=== PATIENT | male | born 1975 | race Caucasian/White ===

== ENCOUNTER 2019-10-21 13:27 | Outpatient (REF) | payer BC, SELFPAY ==
[2019-10-22 11:31] LABS: COVID-19 RT-PCR UVMMC Result Negative (Negative)
== END 2019-10-21 13:47 ==
LOC: NCHCN 13:27
PROVIDERS: PCP Family Medicine; Visit Provider Physician Assistant
DX: J06.9 Acute upper respiratory infection, unspecified (principal)
CPT/HCPCS: U0003

== ENCOUNTER 2022-03-15 17:55 | Outpatient (REF) | payer BC, SELFPAY ==
[2022-03-15 19:18] LABS: HCT 44.2 % (40.0-50.0); HGB 15.5 g/dL (13.5-17.5); MCH 31.4 pg (27.0-33.0); MCHC 35.1 % (32.0-36.0); MCV 90 fL (80-95); MPV 10.5 fL (8.0-11.0); Platelet Count 242 10^3/uL (130-400); RBC 4.93 10^6/uL (4.36-5.78); RDW 11.9 % (11.8-14.1); RDW-SD 38.8 fL; WBC 6.58 10^3/uL (4.4-10.8)
[2022-03-15 19:28] LABS: Anion Gap 6.8 mmol/L (3-11); BUN 17 mg/dL (7-18); CO2 30.2 mmol/L (21.0-32.0); CREATININE 0.9 mg/dL (0.70-1.30); Calcium 9.3 mg/dL (8.5-10.1); Calculated LDL 101 mg/dL (<100); Chloride 102 mmol/L (98-107); Cholesterol 200 mg/dL (<200); Estimated GFR 105.35 (mL/min/1.73m2); Glucose 95 mg/dL (74-106); HDL Cholesterol 61 mg/dL (40-60); Sodium 139 mmol/L (136-145); Triglyceride 190 mg/dL (<150)
[2022-03-15 21:07] LABS: Hemoglobin A1C 4.9 % (<5.7)
[2022-03-17 09:44] LABS: Hepatitis C Ab w Rflx HCV PCR Negative (Negative)
== END 2022-03-15 17:56 | disposition home or self-care (01) ==
LOC: NCHCN 17:55
PROVIDERS: PCP Family Medicine; Visit Provider Family Medicine
DX: R55 Syncope and collapse (principal); Z00.00 Encounter for general adult medical examination without abnormal findings; Z11.59 Encounter for screening for other viral diseases
CPT/HCPCS: 80048; 80061; 85027; 86803; 83036

== ENCOUNTER 2023-01-13 07:46 | Day surgery (SDC) | payer BC, SELFPAY ==
--- NOTE | 2023-01-12 22:34 | W.COLOREPORT ---
Date of service: 01/13/23 Time of Service: 09:30 Colonoscopy Report Date of procedure: 01/13/23 Pre-op diagnosis general: colorectal cancer screening Post-op diagnosis procedure note: same (Normal) Surgeon: Che Navarro Anesthesia Type: General:No Airway Estimated blood loss (mL): 0 Pathology: none sent Complications: None Disposition: same day Prep: Miralax/Dulcolax Retraction Time: 12 Procedure Description: After informed consent was obtained the patient was taken to the procedure room and placed in a left decubitous position. Monitors were applied and a time out was done. The patients name, date of , procedure, allergies to medications and metal in their body was reviewed. The patient was then sedated. Once sedated and comfortable a rectal exam was done. External exam was normal. Internal exam revealed a normal sphincter tone and no palpable masses. The prostate normal. The scope was then introduced and retrofelexed. No internal hemorrhoids were identified. The scope was then advanced to the cecum without difficulty. The TI and appendiceal orifice were identified. The prep was BBPS 3 in all segments for total of 9. The scope was then slowly retracted over 12 minutes back into the rectum. There are no polyps, AVMs, or diverticula visualized today. The mucosa is pink and healthy with a normal vascular pattern.. The scope was removed and the patient was woken up and taken back to Same day surgery in stable condition. The patient tolerated the procedure well and there were no immediate complications. Follow up: The patient should follow up in 10 years unless they develop changes in bowel habits or other new gastrointestinal complaints.
--- NOTE | 2023-01-12 22:35 | PDOC.DSDIS_ITS ---
Date of service: 01/13/23 Time of Service: 09:52 Discharge Plan Disposition Patient Disposition: Home Condition: Good Discharge Details Reason For Visit: Colon cancer screening Attending Provider: Che Navarro Primary Care Provider: Beto Castillo Home Meds and New Rx's Prescriptions: Continued ibuprofen 200 mg tablet 200 mg PO Q6H PRN Discontinued bisacodyl [Dulcolax (bisacodyl)] 5 mg tablet,delayed release (DR/EC) 5 mg PO ONCE Qty: 4 0RF Rx Instructions: Colonoscopy Bowel Prep- Per Instructions polyethylene glycol 3350 17 gram/dose powder 238 g PO ONCE Qty: 238 0RF Rx Instructions: Colonoscopy Bowel Prep- Per Instructions Discharge Instructions Additional Instructions: DSU Colonoscopy Post- Op Instructions Instructions for Everyone who is given Anesthesia: For your safety, please do the following for the next twenty-four (24) hours: *Do Not operate a motor vehicle (car, truck, motorcycle, etc.) *Do Not drink alcoholic beverages or use any recreational drugs for the first 24 hours or while taking pain medications. The medications in your body may have a reaction that can be dangerous. *Do Not make any important decisions or sign any important papers. Findings: Normal Follow up: Repeat in 10 yrs time 1. No lifting over 20 pounds or strenuous activity for the first 24 hours after your procedure. After 24 hours there are no restrictions on your activity but you may feel fatigued for a few days. 2. After you arrive home you may have a light meal and return to your normal diet as you can tolerate it without feeling sick to your stomach. 3. You may have a bloated, gaseous feeling in your belly (abdomen) after a colonoscopy. Passing gas and belching will help. Walking or lying down on your left side with your knees flexed may relieve the discomfort. Call the office at [phone] (Office) or [phone] (Hospital) right away if you notice any of the following: a.Vomiting of blood or ?coffee ground stools?. b.Rectal bleeding 1Tbsp, blood clots or continuous bleeding. c.Severe belly (abdominal) pain. d.A hard distended belly (abdomen) and an inability to pass gas. 4. Please don?t expect to have a normal BM (bowel movement) for 2-3 days after your procedure. 5. If there are questions regarding the findings of your procedure, please contact your doctor 6. If you are unable to contact your doctor with a problem, contact the hospital at [phone]. 7. Continue all your regular medications unless directed otherwise. I understand the above instructions and have no questions. Signature of Patient or Adult Escort Name of Responsible Adult Escort Signature of Nurse Date/Time Activity:: see above Diet:: see above Discharge Orders Discharge Orders: Discharge Order (Routine); Ordered 01/13/23 Ordered By: Che Navarro DS: Diagnosis Discharge Diagnosis (1) Screening for malignant neoplasm of colon performed: Status: Acute Asessment and Plan: Post [place] Note/Eval The patient is seen and examined after their colonoscopy.? The patient has been able to pass gas.? They are not having abdominal pain.? They have been able to tolerate liquids and a snack.? They do not have any nausea or vomiting.? They are not having any chest pain or shortness of breath.??? They are not having any rectal bleeding. Their vital signs have been stable-see nursing notes. We discussed findings during their colonoscopy, and any biopsies that were done/polyps that were removed. The patient will be sent a letter with any biopsy results, and when to repeat the colonoscopy.-see discharge instructions. Patient was given explicit instructions to follow-up regarding colonoscopy-refer to discharge instructions.? We reviewed resumption of medications. Patient verbalized understanding and discharged in stable and satisfactory condition- See nursing notes.
[2023-01-13 07:57] VITALS: BP 109/68; PULSE 67; RESP 18; TEMP 36.3; O2SAT 98
[2023-01-13] MEDS: Lactated Ringers 1,000 ML 80 ML IV (08:08)
--- NOTE | 2023-01-13 09:07 | W.ANESPRE ---
General Info Date of Service Date Performed: 01/13/23 Height: 6 ft Weight: 85.4 kg Body Mass Index (BMI): 25.5 Surgical Procedure: Operation Date: 01/13/23 09:05 Proposed Procedure Side Surgeon p Colonoscopy Che Navarro DO Actual Procedure Side Surgeon p Colonoscopy Not Applicable Che Navarro DO Pre-Op Diagnosis Post-Op Diagnosis screening screening Meds Allergies and Home Medications Allergies Allergy/AdvReac Type Severity Reaction Status Date / Time No Known Allergies Allergy Verified 01/13/23 08:00 Home Medication Medication Instructions Recorded ibuprofen 200 mg tablet 200 mg PO Q6H PRN 09/26/22 Current Visit Medications: Current Medications Generic Name Dose Route Start Last Admin Trade Name Freq PRN Reason Stop Dose Admin Hyoscyamine Sulfate 0.125 mg 01/13/23 10:32 Hyoscyamine 0.125 Mg Sl/Oral/Chew SL 02/12/23 10:31 DIRECTED PRN Ringer's Solution 1,000 mls @ 80 mls/hr 01/13/23 06:00 01/13/23 08:08 IV 01/13/23 23:59 80 mls/hr INFUSION KIAN Administration IV Miscellaneous Supplies 1 each 01/13/23 06:00 Iv Access IV 01/13/23 23:59 DIRECTED KIAN Ondansetron HCl 4 mg 01/13/23 10:32 Ondansetron 4 Mg/2 Ml Vial IVP 02/12/23 10:31 Q4H PRN PRN Nausea / Vomiting Sodium Chloride 0 ml 01/13/23 06:00 Normal Saline Flush 10 Ml Syr IV 01/13/23 23:59 PRN PRN Sodium Chloride 0 ml 01/13/23 06:00 Normal Saline 10 Ml Vial IJ 01/13/23 23:59 DIRECTED PRN Sterile Water 0 ml 01/13/23 06:00 Water,Injection,Sterile 10 Ml Vial IJ 01/13/23 23:59 DIRECTED PRN PFSH Active Problems Active Problems: Problem Status Onset Code Screening for malignant neoplasm of colon performed Z12.11 Syncope R55 Surgical History Surgical History Right distal ulnar fracture with plating Tobacco Smoking/Tobacco Use Status: Never Alcohol Alcohol Intake: current Alcohol intake frequency: a few times a month Alcohol type: beer Substance Use Substance use: Daily Substance use type: marijuana Details: uses as sleep aid, last time used 2 days ago Vital Signs and Lab Results Vital Signs Most Recent Vital Signs in EMR: Most Recent Vital Signs Temp Pulse Resp BP Pulse Ox 36.3 C L 67 18 109/68 98 01/13/23 07:57 01/13/23 07:57 01/13/23 07:57 01/13/23 07:57 01/13/23 07:57 Point of Care Results Point of Care Results: POC- Test(urine) Negative 01/13/23 08:53 Lab Results Blood Type / Crossmatch: No Data to Display Complete Blood Count: No Data to Display Complete Metabolic Panel: No Data to Display Liver Function Panel: No Data to Display Coagulation Panel: No Data to Display Cardiac Panel: No Data to Display Arterial Blood Gas: No Data to Display Venous Blood Gas: No Data to Display Pancreas Panel: No Data to Display Thyroid Panel: No Data to Display Infectious Disease: No Data to Display Blood Cultures: No Data to Display Toxicology Panel: No Data to Display Anesthesia Assessment and Plan Anesthesia History Personal History: No History of Anesthesia Complications Family History: No Family History of Anesthesia Complications Exercise Tolerance Exercise Tolerance: Metabolic Equivalents>4 Pertinent Negatives Pertinent Negatives: No Symptoms of GERD Cardiac & Pulmonary Exam Cardiac Exam: Normal S1/S2 Heart Sounds Pulmonary Exam: Clear Bilateral Breath Sounds Implantable Cardiac Device Does patient have a Pacemaker or an ICD?: No Airway Exam Known Difficult Airway: No Mallampati Class: 2 Mouth Opening: Normal (> 3cm) Thyromental Distance: Greater than 3 cm Neck Range of Motion: Full ROM Neck Circumference: Normal Teeth Condition: Normal Dentition ASA Classification ASA Score: ASA 2 Emergency Case?: No NPO Status NPO Status: NPO Clears >2 hours, Solids >8 hours Anesthesia Plan Resuscitation Status: Full Code Anesthesia Technique: General Anesthesia Airway Planned: Natural Airway Monitors Used: Standard Monitors
[2023-01-13 09:08] VITALS: BMI 25.5
[2023-01-13 09:47] VITALS: BP 110/79; PULSE 66; RESP 16; TEMP 36.4; O2SAT 98
--- NOTE | 2023-01-13 09:58 | W.ANESPOSTOP ---
Postoperative Evaluation Date, Time and Location Date Performed: 01/13/23 Time Performed: 09:58 Patient Location: Day Surgery Unit Vital Signs Most Recent Imported Vital Signs: Most Recent Vital Signs Temp Pulse Resp BP Pulse Ox 36.3 C L 67 18 109/68 98 01/13/23 07:57 01/13/23 07:57 01/13/23 07:57 01/13/23 07:57 01/13/23 07:57 Pain Score Most Recent Pain Score: Most Recent Pain Score Pain Level 0 01/13/23 07:57 Assessment Mental Status: Arousable with meaningful communication Airway and Respiratory Function: Patent airway with normal (patient baseline) respiratory exam Cardiovascular Function: Hemodynamically Stable Hydration Status: Adequately Hydrated Nausea & Vomiting: No Nausea or Vomiting Pain: Pt. Denies Any Pain Peripheral Nerve Block: Patient did not receive a nerve block
[2023-01-13 10:20] VITALS: BP 126/81; PULSE 66; RESP 16; TEMP 36.2; O2SAT 99
== END 2023-01-13 10:37 | disposition home or self-care (01) ==
PROVIDERS: PCP Family Medicine; Visit Provider Surgery
PROC: 0DJD8ZZ Inspection of Lower Intestinal Tract, Via Natural or Artificial Opening Endoscopic (ICD-10-PCS; CPT 45378; principal; 2023-01-13 09:00)
DX: Z12.11 Encounter for screening for malignant neoplasm of colon (principal)
CPT/HCPCS: 45378; J2001